=== PATIENT | female | born 1950 | race Hispanic/Latino ===

== ENCOUNTER → 2023-11-13 | Outpatient (CLI) | payer MEDICARE ==
[2023-11-13 09:04] LABS: INR 1.08 (0.85-1.15); PROTHROMBIN TIME 12.7 SEC (9.6-11.6)
[2023-11-13 09:05] LABS: PARTIAL THROMBOPLASTIN TIME 28.9 SEC (26.3-35.5)
== END | disposition home or self-care (01) ==
LOC: RAH 07:43
PROVIDERS: ATTEND Otolaryngology Plastic Surgery within the Head & Neck
DX: R22.1 Localized swelling, mass and lump, neck (principal); Z79.01 Long term (current) use of anticoagulants; Z98.890 Other specified postprocedural states
CPT/HCPCS: 20206; 85610; 85730; 36415; 88323; 76942; 88341; 88305; 88342; C2615; 60100